=== PATIENT | male | born 1975 | race Caucasian/White ===

== ENCOUNTER 2019-03-16 11:57 | Emergency (ER) | payer MEDICAID ==
[~2019-03-16] VITALS: Ht 175.3 cm; Wt 90.9 kg
[2019-03-16] MEDS ORDERED: ONDANSETRON 2MG/ML, 2ML IVPush ONE (12:30)
[2019-03-16] MEDS ORDERED: SODIUM CHLORIDE FLUSH 10ML SYR IVF ONE (12:30)
[2019-03-16] MEDS ORDERED: SODIUM CHLORIDE 0.9% 1,000ML IVBOLUS ONE (12:30)
[2019-03-16] MEDS ORDERED: methylPREDNISolone SOD SUCC 125 MG/2 ML IVP ONE (12:30)
[2019-03-16] MEDS ORDERED: ONDANSETRON 2MG/ML, 2ML ONE (12:37)
[2019-03-16] MEDS ORDERED: MORPHINE SULFATE 4 MG/ML, 1ML ONE ×2 (12:37→13:04)
[2019-03-16] MEDS ORDERED: methylPREDNISolone SOD SUCC 125 MG/2 ML ONE (12:37)
[2019-03-16] MEDS: MORPHINE SULFATE 4 MG/ML, 1ML IVPush PRN ×2 (12:43→13:07)
[2019-03-16 12:45] LABS: BASOPHILS # (AUTO) 0.12 x10^3/uL (0-0.1); BASOPHILS % (AUTO) 1 % (0-1); EOSINOPHILS # (AUTO) 0.08 x10^3/uL (0-0.4); EOSINOPHILS % (AUTO) 1 % (1-7); LYMPHOCYTES # (AUTO) 1.67 x10^3/uL (1-3.4); LYMPHOCYTES % (AUTO) 13 % (22-44); MD NO; MEAN CORPUSCULAR HEMOGLOBIN 28.3 pg (27.5-34.5); MEAN CORPUSCULAR HGB CONC 32.4 g/dL (33.2-36.2); MEAN CORPUSCULAR VOLUME 87.4 fL (81-97); MONOCYTES # (AUTO) 1.22 x10^3/uL (0.2-0.8); MONOCYTES % (AUTO) 9 % (2-9); NEUTROPHILS # (AUTO) 10.02 x10^3/uL (1.8-6.8); NEUTROPHILS % (AUTO) 76 % (42-75); PLATELET COUNT 226 x10^3/uL (130-400); RED BLOOD COUNT 5.02 x10^6/uL (4.38-5.82); RED CELL DISTRIBUTION WIDTH 19.3 % (9.4-14.8)
[2019-03-16 12:49] LABS: ALANINE AMINOTRANSFERASE 41 U/L (12-78); ALBUMIN 3.8 g/dL (3.4-5.0); ANION GAP 5 mmol/L (5-15); CALCIUM 8.4 mg/dL (8.5-10.1); CHLORIDE 107 mmol/L (98-107); CREATININE 0.96 mg/dL (0.7-1.3)
[2019-03-16 12:52] LABS: ALKALINE PHOSPHATASE 55 U/L (45-117); BILIRUBIN,TOTAL 0.4 mg/dL (0.2-1.0); TOTAL PROTEIN 7.2 g/dL (6.4-8.2)
[2019-03-16] MEDS ORDERED: HYDROmorphone 2 MG/ML, 1ML ONE ×2 (13:17→13:51)
[2019-03-16] MEDS ORDERED: HYDROmorphone 2 MG/ML, 1ML IV ONE (13:30)
[2019-03-16 13:45] LABS: MICROSCOPIC NOT IND
[2019-03-16 13:48] LABS: CULTURE INDICATED? NO
[2019-03-16] MEDS ORDERED: HYDROmorphone 1 MG/ML, 1ML INJ IV ONE (14:00)
[2019-03-16 14:23] VITALS: BP 144/85
== END 2019-03-16 14:27 | disposition home or self-care (01) ==
LOC: ED 12:40
DX: R10.11 Right upper quadrant pain (principal); R10.31 Right lower quadrant pain; D72.829 Elevated white blood cell count, unspecified; F17.210 Nicotine dependence, cigarettes, uncomplicated; R11.0 Nausea; R19.7 Diarrhea, unspecified
CPT/HCPCS: 36415; 80053; 81003; 83690; 85025; 96361; 96374; 96375; 96376; 99283; J1170; J2270; J2405; J2930; J7030

== ENCOUNTER 2019-03-19 01:35 | Emergency (ER) | payer MEDICAID ==
[~2019-03-19] VITALS: Ht 175.3 cm; Wt 91.4 kg
[2019-03-19] MEDS ORDERED: methylPREDNISolone SOD SUCC 125 MG/2 ML IVPush ONE (02:00)
[2019-03-19] MEDS ORDERED: ONDANSETRON 2MG/ML, 2ML IVPush ONE (02:00)
[2019-03-19] MEDS ORDERED: ONDANSETRON 2MG/ML, 2ML ONE (02:01)
[2019-03-19] MEDS ORDERED: methylPREDNISolone SOD SUCC 40 MG/ML ONE (02:01)
[2019-03-19] MEDS ORDERED: MORPHINE SULFATE 4 MG/ML, 1ML ONE ×2 (02:01→02:30)
[2019-03-19] MEDS: MORPHINE SULFATE 4 MG/ML, 1ML IVPush PRN ×2 (02:19→02:39)
--- NOTE | 2019-03-19 02:27 | NUR ---
C/O ABDOMINAL PAIN SINCE TUESDAY. OFF AND ON N/V/D. HX OF CROHN'S DISEASE. per triage note
--- NOTE | 2019-03-19 02:27 | NUR ---
medicated vss stable pt wants more morphine within 15 mib per pain pt stated " morphine didnt do anything to me i asked dilaudid but doctor didnt listen to me. i need morphine again within 10 min anyway "
[2019-03-19 02:31] LABS: BASOPHILS % (AUTO) 1 % (0-1); EOSINOPHILS # (AUTO) 0.01 x10^3/uL (0-0.4); EOSINOPHILS % (AUTO) 0 % (1-7); LYMPHOCYTES # (AUTO) 0.51 x10^3/uL (1-3.4); LYMPHOCYTES % (AUTO) 5 % (22-44); MD NO; MEAN CORPUSCULAR HEMOGLOBIN 28.4 pg (27.5-34.5); MEAN CORPUSCULAR HGB CONC 32.7 g/dL (33.2-36.2); MEAN CORPUSCULAR VOLUME 86.7 fL (81-97); MONOCYTES # (AUTO) 0.28 x10^3/uL (0.2-0.8); MONOCYTES % (AUTO) 3 % (2-9); NEUTROPHILS # (AUTO) 10.01 x10^3/uL (1.8-6.8); NEUTROPHILS % (AUTO) 92 % (42-75); PLATELET COUNT 232 x10^3/uL (130-400); RED BLOOD COUNT 4.71 x10^6/uL (4.38-5.82); RED CELL DISTRIBUTION WIDTH 19.6 % (9.4-14.8)
--- NOTE | 2019-03-19 02:41 | NUR ---
2nd morphine iv was given pt is still demanding dilaudid iv md was notified
[2019-03-19 02:44] LABS: ALANINE AMINOTRANSFERASE 30 U/L (12-78); ALBUMIN 3.6 g/dL (3.4-5.0); ANION GAP 8 mmol/L (5-15); CALCIUM 8.7 mg/dL (8.5-10.1); CHLORIDE 106 mmol/L (98-107); CREATININE 0.94 mg/dL (0.7-1.3)
[2019-03-19 02:46] LABS: ALKALINE PHOSPHATASE 57 U/L (45-117); BILIRUBIN,TOTAL 0.3 mg/dL (0.2-1.0); TOTAL PROTEIN 7.3 g/dL (6.4-8.2)
[2019-03-19 02:52] VITALS: BP 135/84
[2019-03-19] MEDS ORDERED: HYDROcodone/APAP 5/325 TABLET ONE (03:40)
--- NOTE | 2019-03-19 03:41 | NUR ---
RECEIVED report from IR pt was given 5mg of versed 100mcg of fentanyl 30mg of toradol dring the procedure vss stable at this time Rt groin approach of 5 fr sheath holding of pressure now
--- NOTE | 2019-03-19 03:43 | NUR ---
given norco per pt's complaint of pain md at bed side discussed poc emery given norco before dc pt home
[2019-03-19] MEDS ORDERED: HYDROcodone/APAP 5/325 TABLET PO ONE (04:00)
== END 2019-03-19 03:47 | disposition home or self-care (01) ==
LOC: ED 02:41
DX: K50.90 Crohn's disease, unspecified, without complications (principal); R10.12 Left upper quadrant pain; R19.7 Diarrhea, unspecified
CPT/HCPCS: 36415; 80053; 83690; 85025; 96374; 96375; 99283; J2270; J2405; J2930

== ENCOUNTER 2019-03-22 11:46 | Emergency (ER) | payer MEDICAID ==
[~2019-03-22] VITALS: Ht 175.3 cm; Wt 89.0 kg
[2019-03-22] MEDS ORDERED: methylPREDNISolone SOD SUCC 40 MG/ML IV ONE (12:10)
[2019-03-22] MEDS ORDERED: ONDANSETRON 2MG/ML, 2ML ONE (12:21)
[2019-03-22] MEDS ORDERED: methylPREDNISolone SOD SUCC 40 MG/ML ONE (12:21)
[2019-03-22] MEDS ORDERED: HYDROmorphone 2 MG/ML, 1ML ONE ×2 (12:22→13:40)
[2019-03-22] MEDS: HYDROmorphone 2 MG/ML, 1ML IVPush PRN ×2 (12:28→13:42)
[2019-03-22] MEDS ORDERED: ONDANSETRON 2MG/ML, 2ML IVPush ONE (12:30)
[2019-03-22] MEDS ORDERED: SODIUM CHLORIDE FLUSH 10ML SYR IVF ONE (12:30)
[2019-03-22] MEDS ORDERED: SODIUM CHLORIDE 0.9% 1,000ML IVBOLUS ONE (12:30)
--- NOTE | 2019-03-22 13:00 | NUR ---
PT RESTING IN GURNEY WITH AT BEDSIDE. IV ESTABLISHED AND PT MEDICATED PER MAR, NS INFUSING. AWAITING LAB RESULTS. PT REQUESTED MORE PAIN MEDICATION
[2019-03-22 13:04] VITALS: BP 138/91
[2019-03-22 13:04] LABS: MEAN CORPUSCULAR HEMOGLOBIN 28.5 pg (27.5-34.5); MEAN CORPUSCULAR HGB CONC 32.8 g/dL (33.2-36.2); PLATELET COUNT 283 x10^3/uL (130-400); RED BLOOD COUNT 5.17 x10^6/uL (4.38-5.82); RED CELL DISTRIBUTION WIDTH 19.3 % (9.4-14.8)
[2019-03-22 13:09] LABS: ALBUMIN 3.2 g/dL (3.4-5.0); ANION GAP 8 mmol/L (5-15); CALCIUM 8.5 mg/dL (8.5-10.1); CHLORIDE 107 mmol/L (98-107)
[2019-03-22 13:12] LABS: ALANINE AMINOTRANSFERASE 36 U/L (12-78); ALKALINE PHOSPHATASE 54 U/L (45-117); BILIRUBIN,TOTAL 0.4 mg/dL (0.2-1.0); CREATININE 0.96 mg/dL (0.7-1.3); TOTAL PROTEIN 6.8 g/dL (6.4-8.2)
[2019-03-22 13:26] LABS: BASOPHILS # (AUTO) 0.04 x10^3/uL (0-0.1); BASOPHILS % (AUTO) 0 % (0-1); EOSINOPHILS # (AUTO) 0.12 x10^3/uL (0-0.4); EOSINOPHILS % (AUTO) 1 % (1-7); LYMPHOCYTES # (AUTO) 1.51 x10^3/uL (1-3.4); LYMPHOCYTES % (AUTO) 12 % (22-44); MD SCAN; MONOCYTES # (AUTO) 0.92 x10^3/uL (0.2-0.8); MONOCYTES % (AUTO) 8 % (2-9); NEUTROPHILS # (AUTO) 9.77 x10^3/uL (1.8-6.8); NEUTROPHILS % (AUTO) 79 % (42-75)
[2019-03-22] MEDS ORDERED: NEOSPORIN OINT. PKT 1 PACKET ONE (14:00)
== END 2019-03-22 14:05 | disposition home or self-care (01) ==
LOC: ED 13:18
DX: K50.911 Crohn's disease, unspecified, with rectal bleeding (principal); R10.30 Lower abdominal pain, unspecified; R11.2 Nausea with vomiting, unspecified
CPT/HCPCS: 36415; 80053; 83605; 83690; 85025; 87040; 96361; 96374; 96375; 96376; 99283; J1170; J2405; J2920; J7030